=== PATIENT | male | born 1965 | race African-American/Black ===

== ENCOUNTER 2024-12-21 15:52 | Emergency (ER) | payer MEDICAID ==
[~2024-12-21] VITALS: Ht 188 cm; Wt 87.0 kg
[2024-12-21 15:56] VITALS: O2SAT 98
[2024-12-21 15:58] VITALS: TEMP 36.8; O2SAT 98
[2024-12-21] MEDS ORDERED: LIDO700A30 TP (17:30)
[2024-12-21] MEDS ORDERED: IBUP-2029 MT (17:30)
[2024-12-21 17:41] VITALS: BP 144/94; PULSE 91; RESP 18
[2024-12-21] MEDS: KETOROLAC 15MG/ML VIAL IM ONE (17:41)
== END 2024-12-21 17:42 | disposition home or self-care (01) ==
LOC: ER 15:52
DX: G89.29 Other chronic pain (principal); M54.2 Cervicalgia; M79.605 Pain in left leg; I10 Essential (primary) hypertension; Z98.890 Other specified postprocedural states; Z79.899 Other long term (current) drug therapy; Z88.2 Allergy status to sulfonamides; Z88.1 Allergy status to other antibiotic agents
CPT/HCPCS: 99283; 96372; J1885